=== PATIENT | female | born 1975 | race Caucasian/White ===

== ENCOUNTER 2019-02-24 12:19 | Emergency (ER) | payer OTHER ==
--- NOTE | 2019-02-24 12:56 | EDM.PDOC ---
ED HPI GENERAL MEDICAL PROBLEM - General Chief Complaint: ENT Problem Stated Complaint: POSSIBLE STREP THROAT Time Seen by Provider: 02/24/19 12:45 Source of Information: Reports: Patient, Old Records, RN History Limitations: Reports: No Limitations - History of Present Illness INITIAL COMMENTS - FREE TEXT/NARRATIVE: 43 yo female here with a sore throat since yesterday. Has not had a fever. Gets strep often. Last 4 mos. ago. Onset: Gradual Onset Date: 02/23/19 Duration: Hour(s): (1+), Constant Location: Reports: Neck (throat) Quality: Reports: Sharp (with swallowing) Severity: Moderate Improves with: Reports: Medication Worsens with: Reports: Other (swallowing) Context: Reports: Other (see HPI) Associated Symptoms: Reports: No Other Symptoms. Denies: Fever/Chills Treatments DECORATOR LIGHTING FIXTURES: Reports: Other (see below) (none) Throat Pain Score (Numeric/FACES): 6 - Related Data Allergies Allergy/AdvReac Type Severity Reaction Status Date / Time amoxicillin [From Augmentin] Allergy Rash Verified 02/09/18 06:59 clavulanic acid Allergy Rash Verified 02/09/18 06:59 [From Augmentin] Home Meds: Home Meds DULoxetine HCl [Cymbalta] 120 mg PO DAILY 01/16/17 [History] busPIRone [Buspar] 30 mg PO BID 01/16/17 [History] ARIPiprazole [Abilify] 10 mg PO DAILY 02/08/18 [History] Estradiol [Estrace] 1 mg PO DAILY 02/08/18 [History] buPROPion [buPROPion XL] 150 mg PO DAILY 02/08/18 [History] buPROPion [buPROPion XL] 300 mg PO BEDTIME 02/08/18 [History] Acetaminophen with Codeine [Tylenol with Codeine #3 Tablet] 2 each PO Q6HR PRN 02/09/18 [History] Carisoprodol [Soma] 250 mg PO QID PRN 02/09/18 [History] LORazepam 1 mg PO Q4HR PRN 02/09/18 [History] Past Medical History Gastrointestinal History: Reports: Other (See Below) Other Gastrointestinal History: blood in stool Genitourinary History: Reports: Renal Calculus [employer] History: Reports: Musculoskeletal History: Reports: Back Pain, Chronic, Other (See Below) Other Musculoskeletal History: R knee pain Psychiatric History: Reports: Anxiety, Bipolar, Depression, Mood Swings, Panic Attack Other Psychiatric History: Recieved ECT treatment Endocrine/Metabolic History: Reports: Obesity/BMI 30+ - Infectious Disease History Infectious Disease History: Reports: Chicken Pox - Past Surgical History GI Surgical History: Reports: Appendectomy, Hernia, Inguinal Female Surgical History: Reports: Section, Hysterectomy, Lithotripsy /ESWL Musculoskeletal Surgical History: Reports: Knee Replacement Social & Family History - Family History Family Medical History: Noncontributory - Tobacco Use Smoking Status *Q: Current Some Day Smoker Years of Tobacco use: 5 Packs/Tins Daily: 0.5 - Caffeine Use Caffeine Use: Reports: Coffee - Recreational Drug Use Recreational Drug Use: No ED ROS ENT - Review of Systems Review Of Systems: See Below Constitutional: Reports: No Symptoms HEENT: Reports: Throat Pain, Other (white exudate on tonsils) Respiratory: Reports: No Symptoms Cardiovascular: Reports: No Symptoms GI/Abdominal: Reports: No Symptoms Skin: Reports: No Symptoms Neurological: Reports: No Symptoms ED EXAM, ENT - Physical Exam Exam: See Below Exam Limited By: No Limitations General Appearance: Alert, WD/WN, No Apparent Distress Eye Exam: Bilateral Eye: Normal Inspection Ears: Normal External Exam, Normal Canal, Hearing Grossly Normal, Normal TMs Nose: Normal Inspection, No Blood Mouth/Throat: Normal Inspection, Normal Lips, Throat Pain, Tonsillar Exudates. No: Peritonsillar Mass, Throat Swelling, Uvular Deviation, Uvular Edema Head: Atraumatic, Normocephalic Neck: Normal Inspection Respiratory/Chest: No Respiratory Distress, Lungs Clear, Normal Breath Sounds, No Accessory Muscle Use Cardiovascular: Regular Rate, Rhythm, No Edema Extremities: Normal Inspection Neurological: Alert, Oriented, CN II-XII Intact, Normal Cognition, No Motor/ Sensory Deficits Skin: Warm, Dry, Intact, Normal Color, No Rash Course - Vital Signs Last Recorded V/S: Last Vital Signs Temp 37.0 C 02/24/19 12:28 Pulse 107 H 02/24/19 12:28 Resp 16 02/24/19 12:28 BP 145/87 H 02/24/19 12:28 Pulse Ox 96 02/24/19 12:28 Departure - Departure Time of Disposition: 13:07 Disposition: Home, Self-Care 01 Condition: Good Clinical Impression: Strep tonsillitis - Discharge Information *PRESCRIPTION DRUG MONITORING PROGRAM REVIEWED*: No *COPY OF PRESCRIPTION DRUG MONITORING REPORT IN PATIENT OMAYRA: No Instructions: Strep Throat, [id number] Referrals: Jodee Arrington PA [Primary Care Provider] - Forms: ED Department Discharge Additional Instructions: Take cephalexin as directed until gone. Acetaminophen and/or ibuprofen for pain relief. Hand washing to reduce the risk of spread. Recheck as needed. Sepsis Event Note - Evaluation Sepsis Screening Result: No Definite Risk - Focused Exam Vital Signs: Vital Signs Temp Pulse Resp BP Pulse Ox 02/24/19 12:28 37.0 C 107 H 16 145/87 H 96 Date Exam was Performed: 02/24/19 Time Exam was Performed: 13:04
== END 2019-02-24 13:15 | disposition home or self-care (01) ==
LOC: JP.ED 12:19
DX: J03.00 Acute streptococcal tonsillitis, unspecified (principal); F17.210 Nicotine dependence, cigarettes, uncomplicated; Z79.899 Other long term (current) drug therapy; F31.9 Bipolar disorder, unspecified; F41.9 Anxiety disorder, unspecified; E66.9 Obesity, unspecified; Z68.30 Body mass index [BMI] 30.0-30.9, adult; Z88.1 Allergy status to other antibiotic agents
CPT/HCPCS: 87880-QW; 99283

== ENCOUNTER 2019-10-16 08:28 | Day surgery (SDC) | payer OTHER ==
[~2019-10-16 08:28] MED LIST: Bupivacaine 0.5% 30 ML SDV ONE
[2019-10-16] MEDS ORDERED: Nozin Nasal Sanitizer NASBOTH ONE (08:45)
[2019-10-16] MEDS ORDERED: Propofol 200 MG/20 ML SDV ONE ×4 (09:02→13:41)
[2019-10-16] MEDS ORDERED: Midazolam 1 MG/ML 2 ML SDV ONE ×3 (09:02→13:30)
[2019-10-16] MEDS ORDERED: fentaNYL 100 MCG/2 ML SDV ONE (09:02)
[2019-10-16] MEDS ORDERED: Lactated Ringers 1,000 ML IV SCH (09:30)
[2019-10-16] MEDS ORDERED: Bupivacaine 0.5% 30 ML SDV ONE (09:51)
[2019-10-16] MEDS ORDERED: ceFAZolin 2 GM in Premix Bag 1 BAG IV ONE (12:15)
[2019-10-16] MEDS ORDERED: Lactated Ringers 1,000 ML ONE (13:44)
--- NOTE | 2019-10-23 18:29 | OR ---
DATE OF PROCEDURE: 10/16/2019 SURGEON: Aubrey Barth MD PREOPERATIVE DIAGNOSIS: Impingement, left shoulder, possible rotator cuff tear. POSTOPERATIVE DIAGNOSIS: Impingement, right shoulder, partial-thickness rotator cuff tear. PROCEDURE: Arthroscopy, right shoulder, with subacromial decompression and acromioplasty. ANESTHESIA: Interscalene block and sedation. INDICATIONS: Pavithra is a 43-year-old female with a history of persistent shoulder pain and difficulty with overhead activities. She has failed conservative treatment. Examination imaging are consistent with impingement and rotator cuff tendinopathy with possible partial- thickness or small full-thickness tear. She is now brought to the operating room for arthroscopic evaluation, decompression, acromioplasty, and repair of the cuff as needed. Risks, benefits, potential complications of the procedure were discussed. PROCEDURE IN DETAIL: After adequate anesthesia was obtained, patient was placed in lateral decubitus position and secured with a vanegas bag positioner. The left shoulder and arm were then prepped and draped in a sterile fashion and 10 pounds traction was placed through the shoulder traction unit. A standard posterior portal was established. Glenohumeral joint was inspected and this revealed no significant degenerative changes of the glenoid or humeral head. A very minimal fraying of the labrum was present. The biceps tendon was intact. Subscapularis was intact. The undersurface of the rotator cuff showed a small partial thickness tear on the undersurface, and this was marked using a spinal needle with a PDS suture. The scope was withdrawn and placed in the subacromial space. Moderate inflammation noted within the bursa. Significant impingement was noted against the coracoacromial ligament with very limited space. Ligament was debrided off the undersurface of the acromion with the ablation wand. This showed a fairly severe anterolateral hook on the acromion. A eliana was used to perform an acromioplasty removing approximately 6 mm from the anterolateral edge and bevelling this medially and posteriorly. The bursal surface of the rotator cuff was inspected and found to be intact. The area of the partial-thickness tear was palpated with a probe and not found to be significantly weakened and a decision was made not to proceed with repair of the cuff. The scope was evaluated from both the posterior and lateral portals. Level of the acromioplasty was adequate. The scope was then withdrawn. Port sites were closed in a standard fashion, dressed with Steri-Strips and a sterile dressing. The patient tolerated procedure well, there were no complications, taken from the operating room in a stable condition. Aubrey Barth MD /[id number]
== END 2019-10-16 15:45 | disposition home or self-care (01) ==
LOC: JP.SDS 08:28
PROVIDERS: ATTEND Specialist
DX: M25.812 Other specified joint disorders, left shoulder (principal); M75.111 Incomplete rotator cuff tear or rupture of right shoulder, not specified as traumatic; M17.11 Unilateral primary osteoarthritis, right knee; K21.9 Gastro-esophageal reflux disease without esophagitis; F17.210 Nicotine dependence, cigarettes, uncomplicated; E66.9 Obesity, unspecified; F41.9 Anxiety disorder, unspecified; F32.9 Major depressive disorder, single episode, unspecified; Z68.41 Body mass index [BMI] 40.0-44.9, adult; Z88.1 Allergy status to other antibiotic agents; Z79.899 Other long term (current) drug therapy
CPT/HCPCS: 29826; 29827; 36415; 80053; 85027; A9270; C1713; J0690; J2250; J2704; J3010; J3490; J7120

== ENCOUNTER 2020-09-28 07:46 | Inpatient (IN) | payer OTHER ==
[~2020-09-28 07:46] MED LIST changes: -Bupivacaine 0.5% 30 ML SDV ONE; +Povidone-Iodine 10% Soln 118.25 ML Bottle ONE
[2020-09-28] MEDS ORDERED: Lactated Ringers 1,000 ML IV SCH (08:15)
[2020-09-28] MEDS ORDERED: Nozin Nasal Sanitizer NASBOTH ONE (08:15)
[2020-09-28] MEDS ORDERED: ceFAZolin 2 GM in Premix Bag 1 BAG IV ONE (08:45)
[2020-09-28] MEDS ORDERED: Propofol 200 MG/20 ML SDV ONE ×2 (08:49→11:52)
[2020-09-28] MEDS ORDERED: fentaNYL 100 MCG/2 ML SDV ONE (08:49)
[2020-09-28] MEDS ORDERED: Midazolam 1 MG/ML 2 ML SDV ONE ×2 (08:49→11:37)
[2020-09-28] MEDS ORDERED: Tranexamic Acid 1,000 MG in Sodium Chloride 0.9% 50 ML IV ONE (09:15)
[2020-09-28] MEDS ORDERED: Tranexamic Acid 1,000 MG in Sodium Chloride 0.9% 50 ML IV PRN (10:15)
[2020-09-28] MEDS ORDERED: Ondansetron 4 MG/2 ML SDV IVPUSH PRN (13:06)
[2020-09-28] MEDS ORDERED: Acetaminophen 325 MG Tab PO PRN (13:06)
[2020-09-28] MEDS ORDERED: LORazepam 1 MG Tab PO PRN (13:11)
--- NOTE | 2020-09-28 13:37 | CR ---
Knee 1V or 2V Lt CLINICAL HISTORY: Status post arthroplasty FINDINGS: Patient is status post total left knee arthroplasty. Components appear well seated. There is intra-articular air. Impression: Status post recent total knee arthroplasty
[2020-09-28] MEDS: Acetaminophen/oxyCODONE 325-5 MG Tab PO PRN ×3 (13:55→22:23)
[2020-09-28] MEDS: Ketorolac 30 MG/ML SDV IVPUSH SCH ×2 (14:38→22:22)
[2020-09-28] MEDS: Morphine 2 MG/ML SYRINGE IVPUSH PRN ×4 (14:50→19:58)
[2020-09-28] MEDS: Sodium Chloride 0.9% 1,000 ML IV SCH (17:28)
[2020-09-28] MEDS: ceFAZolin 1 GM in Premix Bag 1 BAG IV SCH (17:51)
[2020-09-28] MEDS ORDERED: LITHIUM CARBONATE 450 MG PO SCH (21:00)
[2020-09-28] MEDS: Nozin Nasal Sanitizer NASBOTH SCH (22:18)
[2020-09-28] MEDS: busPIRone 10 MG Tab PO SCH (22:19)
[2020-09-28] MEDS: Docusate Sodium 100 MG Cap PO SCH (22:20)
[2020-09-28] MEDS: Lithium Carbonate 300 MG Tab.ER PO SCH (22:21)
[2020-09-28] MEDS: Gemfibrozil 600 MG Tab PO SCH (22:22)
[2020-09-28] MEDS: buPROPion 150 MG Tab.ER PO SCH (22:22)
[2020-09-29] MEDS: Sodium Chloride 0.9% 1,000 ML IV SCH (02:05)
[2020-09-29] MEDS: ceFAZolin 1 GM in Premix Bag 1 BAG IV SCH ×2 (02:06→09:45)
[2020-09-29] MEDS: Acetaminophen/oxyCODONE 325-5 MG Tab PO PRN ×5 (02:12→19:52)
[2020-09-29] MEDS: Ketorolac 30 MG/ML SDV IVPUSH SCH ×2 (06:13→13:54)
--- NOTE | 2020-09-29 08:12 | PCM.SURGPN ---
- General Info Date of Service: 09/29/20 Date of Surgery/Procedure: 09/28/20 POD#: 1 Post-Op Diagnosis: left knee osteoarthritis Admission Diagnosis/Problem: Knee joint operation Functional Status: Reports: Tolerating Diet, Ambulating (with FWW, SBA ) - Review of Systems General: Reports: Appetite (endorsed good appetite ). Denies: Fever, Weakness, Fatigue, Malaise, Chills, Night Sweats HEENT: Denies: Visual Changes Pulmonary: Denies: Shortness of Breath Cardiovascular: Denies: Chest Pain, Palpitations Musculoskeletal: Reports: Leg Pain (left ), Joint Pain (left knee ), Joint Swelling (left knee ) Neurological: Reports: No Symptoms Psychiatric: Reports: No Symptoms - Patient Data Vitals - Most Recent: Last Vital Signs Temp 95.9 F L 09/29/20 07:17 Pulse 87 09/29/20 07:17 Resp 18 09/29/20 07:17 BP 122/71 09/29/20 07:17 Pulse Ox 94 L 09/29/20 07:17 Weight - Most Recent: 253 lb 3.99 oz I&O - Last 24 Hours: Intake & Output 09/28/20 09/29/20 09/29/20 22:59 06:59 14:59 Intake Total 1749 1150 Output Total 900 2425 Balance 849 -1275 Lab Results Last 24 Hrs: Laboratory Results - last 24 hr 09/29/20 Range/Units 04:10 WBC 11.2 H (4.5-11.0) K/uL RBC 3.96 (3.30-5.50) M/uL Hgb 11.7 L (12.0-15.0) g/dL Hct 34.6 L (36.0-48.0) % MCV 87 (80-98) fL MCH 30 (27-31) pg MCHC 34 (32-36) % Plt Count 242 (150-400) K/uL Med Orders - Current: Current Medications Acetaminophen (Acetaminophen 325 Mg Tab) 650 mg PO Q4H PRN PRN Reason: Pain/Fever Amphetamine/Dextroamphetamine (Amphetamine/Dextroamphetamine Salts 10 Mg Tab) 20 mg PO DAILY [facility] Aripiprazole (Aripiprazole 10 Mg Tab) 10 mg PO DAILY [facility] Bandage/Support Products (Nozin Nasal Beater Room Helper) 1 applic NASBOTH BID BERENICE Stop: 10/04/20 21:01 Last Admin: 09/28/20 22:18 Dose: 1 applic Documented by: Bupropion HCl (Bupropion 150 Mg Tab.Er) 150 mg PO DAILY [facility] Bupropion HCl (Bupropion 150 Mg Tab.Er) 300 mg PO BEDTIME [facility] Last Admin: 09/28/20 22:22 Dose: 300 mg Documented by: Buspirone HCl (Buspirone 10 Mg Tab) 30 mg PO BID [facility] Last Admin: 09/28/20 22:19 Dose: 30 mg Documented by: Docusate Sodium (Docusate Sodium 100 Mg Cap) 100 mg PO BID [facility] Last Admin: 09/28/20 22:20 Dose: 100 mg Documented by: Duloxetine HCl (Duloxetine 30 Mg Cap) 120 mg PO DAILY [facility] Enoxaparin Sodium (Enoxaparin 30 Mg/0.3 Ml Syringe) 30 mg SUBCUT DAILY [facility] Estradiol (Estradiol 0.5 Mg Tab) 1 mg PO DAILY [facility] Eszopiclone (Eszopiclone 1 Mg Tab) 0.5 - 2 mg PO BEDTIME PRN PRN Reason: Sleep Last Admin: 09/28/20 22:27 Dose: 1 mg Documented by: Gemfibrozil (Gemfibrozil 600 Mg Tab) 600 mg PO BID [facility] Last Admin: 09/28/20 22:22 Dose: 600 mg Documented by: Sodium Chloride (Normal Saline) 1,000 mls @ 125 mls/hr IV ASDIRECTED [facility] Last Admin: 09/29/20 02:05 Dose: 125 mls/hr Documented by: Cefazolin Sodium/Dextrose 1 gm (/ Premix) 50 mls @ 100 mls/hr IV Q8H [facility] Stop: 09/29/20 10:29 Last Admin: 09/29/20 02:06 Dose: 100 mls/hr Documented by: Ketorolac Tromethamine (Ketorolac 30 Mg/Ml Sdv) 30 mg IVPUSH Q8H [facility] Stop: 09/30/20 06:01 Last Admin: 09/29/20 06:13 Dose: 30 mg Documented by: [place] Carbonate ([place] Carbonate 150 Mg Cap) 150 mg PO BEDTIME [facility] Last Admin: 09/28/20 22:20 Dose: 150 mg Documented by: [place] Carbonate ([place] Carbonate 300 Mg Tab.Er) 300 mg PO BEDTIME [facility] Last Admin: 09/28/20 22:21 Dose: 300 mg Documented by: Lorazepam (Lorazepam 1 Mg Tab) 1 mg PO Q4H PRN PRN Reason: Anxiety Morphine Sulfate (Morphine 2 Mg/Ml Syringe) 1 mg IVPUSH Q1H PRN PRN Reason: Breakthrough Pain Last Admin: 09/28/20 19:58 Dose: 1 mg Documented by: Ondansetron HCl (Ondansetron 4 Mg/2 Ml Sdv) 4 mg IVPUSH Q4H PRN PRN Reason: Nausea/Vomiting Oxycodone/Acetaminophen (Acetaminophen/Oxycodone 325-5 Mg Tab) 1 - 2 tab PO Q4H PRN PRN Reason: Pain Last Admin: 09/29/20 06:19 Dose: 2 tab Documented by: Discontinued Medications Bandage/Support Products (Nozin Nasal Beater Room Helper) 1 applic NASBOTH ONETIME ONE Stop: 09/28/20 08:16 Last Admin: 09/28/20 08:27 Dose: 3 swab Documented by: Fentanyl (Fentanyl 100 Mcg/2 Ml Sdv) Confirm Administered Dose 100 mcg .ROUTE .STK-MED ONE Stop: 09/28/20 08:50 Lactated Ringer's (Ringers, Lactated) 1,000 mls @ 75 mls/hr IV ASDIRECTED [facility] Last Admin: 09/28/20 08:46 Dose: 75 mls/hr Documented by: Cefazolin Sodium/Dextrose 2 gm (/ Premix) 50 mls @ 100 mls/hr IV ONETIME ONE Stop: 09/28/20 09:14 Last Admin: 09/28/20 11:01 Dose: 100 mls/hr Documented by: Tranexamic Acid 1,000 mg/ (Sodium Chloride) 60 mls @ 240 mls/hr IV ONETIME ONE Stop: 09/28/20 09:29 Last Admin: 09/28/20 11:03 Dose: 240 mls/hr Documented by: Tranexamic Acid 1,000 mg/ (Sodium Chloride) 60 mls @ 240 mls/hr IV ONETIME PRN PRN Reason: 2ND DOSE IF REQUESTED BY MD Stop: 09/28/20 12:15 Midazolam HCl (Midazolam 1 Mg/Ml 2 Ml Sdv) Confirm Administered Dose 2 mg .ROUTE .STK-MED ONE Stop: 09/28/20 08:50 Midazolam HCl (Midazolam 1 Mg/Ml 2 Ml Sdv) Confirm Administered Dose 2 mg .ROUTE .STK-MED ONE Stop: 09/28/20 11:38 Non-Formulary Medication (Atorvastatin Calcium [Lipitor]) 40 mg PO DAILY [facility] Povidone Iodine (Povidone-Iodine 10% Soln 118.25 Ml Bottle) Confirm Administered Dose 1 ml .ROUTE .STK-MED ONE Stop: 09/28/20 06:55 Last Admin: 09/28/20 12:02 Dose: 15 ml Documented by: Propofol (Propofol 200 Mg/20 Ml Sdv) Confirm Administered Dose 200 mg .ROUTE .STK-MED ONE Stop: 09/28/20 08:50 Propofol (Propofol 200 Mg/20 Ml Sdv) Confirm Administered Dose 200 mg .ROUTE .STK-MED ONE Stop: 09/28/20 11:53 - Exam Wound/Incisions: Dressing Dry and Intact, No Drainage Quality Assessment: Urine Catheter, DVT Prophylaxis General: Alert, Oriented, Cooperative, No Acute Distress Extremities: Normal Capillary Refill, Pedal Edema, Joint Swelling (left knee ), Leg Pain (left ), Limited Range of Motion (due to postoperative swelling and pain ). No: Lydia's Sign Skin: Warm, Dry, Intact Neurological: No New Focal Deficit Psy/Mental Status: Alert, Normal Affect, Normal Mood Sepsis Event Note - Evaluation Sepsis Screening Result: No Definite Risk - Focused Exam Vital Signs: Vital Signs Temp Pulse Resp BP BP Pulse Ox 09/29/20 07:17 95.9 F L 87 18 122/71 94 L 09/29/20 03:00 97.7 F 72 18 123/69 97 09/28/20 22:31 96.8 F L 63 16 132/72 97 - Problem List & Annotations (1) Postoperative anemia due to acute blood loss SNOMED Code(s): 85110010667850446 Code(s): D62 - ACUTE POSTHEMORRHAGIC ANEMIA Status: Acute Current Visit: Yes (2) Status post total left knee replacement SNOMED Code(s): 5892826913347, 3621304110378 Code(s): Z96.652 - PRESENCE OF LEFT ARTIFICIAL KNEE JOINT Status: Acute Current Visit: Yes - Problem List Review Problem List Initiated/Reviewed/Updated: Yes - My Orders Last 24 Hours: Active Orders 24 hr Category Date Time Status Patient Status [ADT] Routine ADT 09/28/20 13:06 Active Ambulate [RC] QID Care 09/28/20 13:06 Active Antiembolic Devices [RC] .Routine Care 09/28/20 13:06 Active Head of Bed Elevation [RC] ASDIRECTED Care 09/28/20 13:06 Active Intake and Output [RC] QSHIFT Care 09/28/20 13:06 Active May Shower [RC] ASDIRECTED Care 09/28/20 13:06 Active Neurovascular Check [RC] Q4H Care 09/28/20 13:06 Active Notify Provider Vital Signs [RC] ASDIRECTED Care 09/28/20 13:06 Active Oxygen Therapy [RC] PRN Care 09/28/20 13:06 Active Pneumonia Education [RC] UPON Care 09/28/20 13:06 Active RT Incentive Spirometry [RC] Q1HWA Care 09/28/20 13:06 Active Up to Chair [RC] QID Care 09/28/20 13:06 Active Urinary Catheter Removal [RC] PER UNIT ROUTINE Care 09/29/20 07:59 Ordered VTE/DVT Education [RC] Click to Edit Care 09/28/20 13:06 Active Vital Signs [RC] Q4H Care 09/28/20 13:06 Active Wound Care [RC] Q12H Care 09/28/20 13:06 Active Consult to Case Management/Airborne Sensor Specialist [CONS] Cons 09/28/20 13:06 Active Routine OT Evaluation and Treatment [CONS] Routine Cons 09/28/20 13:06 Active PT Evaluation and Treatment [CONS] Routine Cons 09/28/20 13:06 Active PT Evaluation and Treatment [CONS] Routine Cons 09/28/20 13:06 Active Regular Diet [DIET] Diet 09/28/20 Lunch Active ARIPiprazole [Abilify] Med 09/29/20 09:00 Active 10 mg PO DAILY Acetaminophen [TylenoL] Med 09/28/20 13:06 Active 650 mg PO Q4H PRN Acetaminophen/oxyCODONE [Percocet 325-5 MG] Med 09/28/20 13:06 Active 1 - 2 tab PO Q4H PRN Amphetamine/Dextroamphetamine [Adderall] Med 09/29/20 09:00 Active 20 mg PO DAILY DULoxetine [Cymbalta] Med 09/29/20 09:00 Active 120 mg PO DAILY Docusate Sodium [Colace] Med 09/28/20 21:00 Active 100 mg PO BID Enoxaparin [Lovenox] Med 09/29/20 09:00 Active 30 mg SUBCUT DAILY Eszopiclone [Lunesta] Med 09/28/20 13:28 Active 0.5 - 2 mg PO BEDTIME PRN Ketorolac [Toradol] Med 09/28/20 14:00 Active 30 mg IVPUSH Q8H LORazepam [Ativan] Med 09/28/20 13:11 Active 1 mg PO Q4H PRN [place] Carbonate Med 09/28/20 21:00 Active 150 mg PO BEDTIME [place] Carbonate [Lithobid] Med 09/28/20 21:00 Active 300 mg PO BEDTIME Morphine Med 09/28/20 13:06 Active 1 mg IVPUSH Q1H PRN Nozin [ Nasal Beater Room Helper] Med 09/28/20 21:00 Active 1 applic NASBOTH BID Ondansetron [Zofran] Med 09/28/20 13:06 Active 4 mg IVPUSH Q4H PRN Sodium Chloride 0.9% [Normal Saline] 1,000 ml Med 09/28/20 13:15 Active IV ASDIRECTED buPROPion [Wellbutrin XL] Med 09/29/20 09:00 Active 150 mg PO DAILY buPROPion [Wellbutrin XL] Med 09/28/20 21:00 Active 300 mg PO BEDTIME busPIRone [Buspar] Med 09/28/20 21:00 Active 30 mg PO BID ceFAZolin [Ancef 1 GM/50 ML] 1 gm Med 09/28/20 18:00 Active Premix Bag 1 bag IV Q8H estradioL Med 09/29/20 09:00 Active 1 mg PO DAILY gemfibroziL [Lopid] Med 09/28/20 21:00 Active 600 mg PO BID Antiembolic Hose [OM.PC] Routine Oth 09/28/20 13:06 Ordered Convert IV to Saline Lock [OM.PC] Routine Oth 09/29/20 07:59 Ordered DVT/VTE Prophylaxis Reflex [OM.PC] Routine Oth 09/28/20 13:06 Ordered Ice Therapy [OM.PC] Per Unit Routine Oth 09/28/20 13:06 Ordered Medication Continuation Instructions [OM.PC] Per Unit Oth 09/28/20 13:06 Ordered Routine Oral Care [OM.PC] Routine Oth 09/28/20 13:06 Ordered Sequential Compression Device [OM.PC] Routine Oth 09/28/20 13:06 Ordered BRANDON Hose [Antiembolic Hose] [OM.PC] Routine Oth 09/28/20 08:15 Ordered Weight bearing status [OM.PC] Routine Oth 09/28/20 16:21 Ordered Resuscitation Status Routine Resus Stat 09/28/20 13:06 Ordered Medication Orders Acetaminophen (Acetaminophen 325 Mg Tab) 650 mg PO Q4H PRN PRN Reason: Pain/Fever Amphetamine/Dextroamphetamine (Amphetamine/Dextroamphetamine Salts 10 Mg Tab) 20 mg PO DAILY [facility] Aripiprazole (Aripiprazole 10 Mg Tab) 10 mg PO DAILY [facility] Bandage/Support Products (Nozin Nasal Beater Room Helper) 1 applic NASBOTH BID [facility] Stop: 10/04/20 21:01 Last Admin: 09/28/20 22:18 Dose: 1 applic Documented by: CELIA Bupropion HCl (Bupropion 150 Mg Tab.Er) 150 mg PO DAILY [facility] Bupropion HCl (Bupropion 150 Mg Tab.Er) 300 mg PO BEDTIME [facility] Last Admin: 09/28/20 22:22 Dose: 300 mg Documented by: CELIA Buspirone HCl (Buspirone 10 Mg Tab) 30 mg PO BID [facility] Last Admin: 09/28/20 22:19 Dose: 30 mg Documented by: CELIA Docusate Sodium (Docusate Sodium 100 Mg Cap) 100 mg PO BID [facility] Last Admin: 09/28/20 22:20 Dose: 100 mg Documented by: CELIA Duloxetine HCl (Duloxetine 30 Mg Cap) 120 mg PO DAILY [facility] Enoxaparin Sodium (Enoxaparin 30 Mg/0.3 Ml Syringe) 30 mg SUBCUT DAILY [facility] Estradiol (Estradiol 0.5 Mg Tab) 1 mg PO DAILY [facility] Eszopiclone (Eszopiclone 1 Mg Tab) 0.5 - 2 mg PO BEDTIME PRN PRN Reason: Sleep Last Admin: 09/28/20 22:27 Dose: 1 mg Documented by: CELIA Gemfibrozil (Gemfibrozil 600 Mg Tab) 600 mg PO BID [facility] Last Admin: 09/28/20 22:22 Dose: 600 mg Documented by: CELIA Sodium Chloride (Normal Saline) 1,000 mls @ 125 mls/hr IV ASDIRECTED [facility] Last Admin: 09/29/20 02:05 Dose: 125 mls/hr Documented by: Infusion: 09/29/20 01:28 Dose: 125 mls/hr Documented by: Admin: 09/28/20 17:28 Dose: 125 mls/hr Documented by: ZELDA Cefazolin Sodium/Dextrose 1 gm (/ Premix) 50 mls @ 100 mls/hr IV Q8H [facility] Stop: 09/29/20 10:29 Last Admin: 09/29/20 02:06 Dose: 100 mls/hr Documented by: Infusion: 09/28/20 18:21 Dose: 100 mls/hr Documented by: Admin: 09/28/20 17:51 Dose: 100 mls/hr Documented by: ZELDA Ketorolac Tromethamine (Ketorolac 30 Mg/Ml Sdv) 30 mg IVPUSH Q8H [facility] Stop: 09/30/20 06:01 Last Admin: 09/29/20 06:13 Dose: 30 mg Documented by: Admin: 09/28/20 22:22 Dose: 30 mg Documented by: Admin: 09/28/20 14:38 Dose: 30 mg Documented by: ZELDA [place] Carbonate ([place] Carbonate 150 Mg Cap) 150 mg PO BEDTIME [facility] Last Admin: 09/28/20 22:20 Dose: 150 mg Documented by: CELIA [place] Carbonate ([place] Carbonate 300 Mg Tab.Er) 300 mg PO BEDTIME [facility] Last Admin: 09/28/20 22:21 Dose: 300 mg Documented by: CELIA Lorazepam (Lorazepam 1 Mg Tab) 1 mg PO Q4H PRN PRN Reason: Anxiety Morphine Sulfate (Morphine 2 Mg/Ml Syringe) 1 mg IVPUSH Q1H PRN PRN Reason: Breakthrough Pain Last Admin: 09/28/20 19:58 Dose: 1 mg Documented by: Admin: 09/28/20 16:57 Dose: 1 mg Documented by: Admin: 08/02/21 15:50 Dose: 1 mg Documented by: Admin: 09/28/20 14:50 Dose: 1 mg Documented by: ZELDA Ondansetron HCl (Ondansetron 4 Mg/2 Ml Sdv) 4 mg IVPUSH Q4H PRN PRN Reason: Nausea/Vomiting Oxycodone/Acetaminophen (Acetaminophen/Oxycodone 325-5 Mg Tab) 1 - 2 tab PO Q4H PRN PRN Reason: Pain Last Admin: 09/29/20 06:19 Dose: 2 tab Documented by: Admin: 09/29/20 02:12 Dose: 2 tab Documented by: Admin: 09/28/20 22:23 Dose: 2 tab Documented by: Admin: 09/28/20 17:54 Dose: 2 tab Documented by: Admin: 09/28/20 13:55 Dose: 1 tab Documented by: ZELDA - Assessment Assessment (Free Text/Narrative):: Patient is a pleasant 44-year-old female, status post left total knee arthroplasty, postop day #1. No acute events overnight. Patient remains hemodynamically stable. Postop day #1 hemoglobin declined to 11.7. Patient is asymptomatic with this; denied lightheadedness, dizziness, vision changes. Pain has been fairly well controlled overnight; increased pain when spinal block wore off, but reports pain under much better control this morning at rest. Tolerating regular diet well. Patient denied nausea nor emesis. Also denied subjective fevers, chills, dyspnea, chest pain, nor palpitations. Was able to transfer from bed to chair yesterday evening. Walked ~25 ft with FWW and SBA this morning with nursing staff. Endorsed pain in left leg with weightbearing, relieved well with rest and Percocet. Patient continues to require inpatient status at this time for postoperative anemia monitoring and for further physical therapy services to progress ambulation abilities. Exam: Left leg fransisco wrap dry and intact. Modest postoperative swelling present on the left knee extending into the left calf, pedal edema present. Unable to accurately assess temperature of knee, as a cool pack is placed on the knee. Left calf is soft and supple. Negative Homans' sign. Tibialis posterior, 2+. Dorsi flexion: 4+/5. Plantar flexion: 4+/5. Limited knee ROM from post-operative swelling and pain. Plan: * Patient to participate in physical and occupational therapy services daily while in the hospital to progress ambulation abilities and functional mobility of left lower extremity. * Postoperative anemia stable at this time; continue to monitor vitals every 4 hours and for any symptoms of lightheadedness, dizziness, or vision changes. Will recheck CBC if patient becomes symptomatic. * Pierre catheter to be discontinued this morning. * IV saline locked this morning. * Continue with current pain regimen. * Continue with 30 mg Lovenox daily for chemical DVT/VTE prophylaxis. Bilateral SCDs for mechanical prophylaxis. * Left knee dressing change to be performed on postop day #2 by orthopedic provider. * Anticipate discharge to home with outpatient physical therapy when patient is medically stable and ambulation abilities improve.
[2020-09-29] MEDS ORDERED: Non-Formulary Medication 1 Each (Atorvastatin Calcium [Lipitor] 40 MG Tablet) PO SCH (09:00)
[2020-09-29] MEDS: Estradiol 0.5 MG Tab PO SCH (09:44)
[2020-09-29] MEDS: Amphetamine/Dextroamphetamine Salts 10 MG Tab PO SCH (09:44)
[2020-09-29] MEDS: DULoxetine 30 MG Cap PO SCH (09:44)
[2020-09-29] MEDS: ARIPiprazole 10 MG Tab PO SCH (09:44)
[2020-09-29] MEDS: Docusate Sodium 100 MG Cap PO SCH ×2 (09:44→22:04)
[2020-09-29] MEDS: busPIRone 10 MG Tab PO SCH ×2 (09:44→22:04)
[2020-09-29] MEDS: Enoxaparin 30 MG/0.3 ML Syringe SUBCUT SCH (09:45)
[2020-09-29] MEDS: Gemfibrozil 600 MG Tab PO SCH ×2 (09:45→22:04)
[2020-09-29] MEDS: buPROPion 150 MG Tab.ER PO SCH ×2 (09:45→22:06)
[2020-09-29] MEDS: Nozin Nasal Sanitizer NASBOTH SCH ×2 (10:22→22:03)
[2020-09-29] MEDS: Lithium Carbonate 300 MG Tab.ER PO SCH (22:07)
[2020-09-30] MEDS: Acetaminophen/oxyCODONE 325-5 MG Tab PO PRN ×3 (00:46→09:08)
--- NOTE | 2020-09-30 07:46 | PCM.DCSUM1 ---
Discharge Summary - Hospital Course Brief History: patient is a tanya 44 y/o female, history of chronic left knee pain with symptoms refractory to conservative management. Elected to undergo TKA. Left TKA performed on 09/28/20 with no surgical or postoperative complications. Diagnosis: Stroke: No Modified Winkler Scale: No Symptoms at All Modified Filipe Scale Score: 0 - Discharge Data Discharge Date: 09/30/20 Discharge Disposition: Home, Self-Care 01 Condition: Good - Referral to Home Health Date of Face to Face Encounter: 09/30/20 Reason for Homebound Status: motivated to go home, able to ambulate with FWW, completes ADLs with minimal assistance Primary Care Physician: RICARDA Swenson - Discharge Diagnosis/Problem(s) (1) Postoperative anemia due to acute blood loss SNOMED Code(s): 48111212690878418 ICD Code: D62 - ACUTE POSTHEMORRHAGIC ANEMIA Status: Acute Current Visit: Yes (2) Status post total left knee replacement SNOMED Code(s): 7660912623836, [id number] ICD Code: Z96.652 - PRESENCE OF LEFT ARTIFICIAL KNEE JOINT Status: Acute Current Visit: Yes - Patient Summary/Data Operative Procedure(s) Performed: left total knee arthroplasty Consults: Consultations 09/28/20 13:06 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 OT Reason for Consult: ADL's Special Instructions: s/p L TKA This query below is only for informational purposes and is not editable. PT Evaluation and Treatment [CONS] Routine Please Evaluate and Treat. PT Reason for Consult: Post op Ortho Surgery Special Instructions: s/p LTKA, WBAT This query below is only for informational purposes and is not editable. PT Evaluation and Treatment [CONS] Routine Please Evaluate and Treat. PT Reason for Consult: Post op Ortho Surgery Knee Pending Discharge: Yes, 1- 2 days Special Instructions: s/p LTKA Schedule first outpatient PT appointment in 3-5 day post discharge. This query below is only for informational purposes and is not editable. Hospital Course: Tanya 44 y/o female, status post left total knee arthroplasty, POD#2. Patient tolerated surgery well with no complications. No acute events in the post- operative period. Patient remained hemodynamically stable throughout her stay. POD#1 HgB declined to 11.7. Was stable and asymptomatic with this; denied lightheadedness, dizziness, nor vision changes. Also denied subjective fevers, chills, dyspnea, nor chest pain. Patient had some difficulty with the transition from IV to oral pain medications, but eventually obtained adequate pain control with oral Percocet. Tolerated regular diet well; denied nausea or emesis. Participated in PT and OT throughout hospitalization; ambulated up to 100 ft with FWW x 4. Did complete stairs and demonstrated competency and safety in doing so prior to discharge. Flexion of left knee to 85. Demonstrated ability to complete ADLs with minimal assistance. Patient did receive 30 mg Lovenox qd for chemical DVT/VTE prophylaxis and wore bilateral lower extremity SCDs for mechanical prophylaxis. Pierre discontinued POD#1. IV was saline locked POD#1. Dressing change performed by orthopedic provider on evening of POD#1. Patient did shower on POD#2 and new dressing applied to left knee prior to discharge. Exam: Left knee incision approximated and intact; steristrips above with dried drainage. Mild ecchymosis around knee and thigh. Moderate post operative swelling present on left knee extending into calf and foot. Left calf is soft and supple. Negative jhony's sign. Tibialis posterior, 2+. Sensation to LLE intact. Dorsiflexion: 4+/5. Plantar flexion: 5/5. - Patient Instructions Diet: Usual Diet as Tolerated Activity: Apply Ice, Full Weight Bearing Driving: Do Not Drive Showering/Bathing: Shower in AM Wound/Incision Care: Keep Operative Site/Wound Site Clean and Dry, Change Dressing Daily Notify Provider of: Fever, Increased Pain, Swelling and Redness, Drainage Other/Special Instructions: -Pain prescription sent to your pharmacy, 5mg-325 mg Percocet, 1-2 tabs q6 hrs prn for pain #40. This is a 1 week supply, no early re-fills. You may use NSAIDs as needed for breakthrough pain. -You are encouraged to continue with stool softener while on opioid pain medication. - Educated on DVT/VTE warning signs; take 1 aspirin BID to prevent blood clots. If you develop increased calf pain, lower extremity discoloration, change in temperature, or shortness of breath, please seek medical evaluation. -Watch your incision daily; if increased surrounding redness, purulent drainage, or change in temperature, please contact the clinic. -Outpatient PT has been scheduled. -Follow up with orthopedics in 2 weeks; call if questions or concerns arise prior to your scheduled apt. - Discharge Plan *PRESCRIPTION DRUG MONITORING PROGRAM REVIEWED*: Yes *COPY OF PRESCRIPTION DRUG MONITORING REPORT IN PATIENT OMAYRA: Not Applicable Prescriptions/Med Rec: Aspirin 325 mg PO BID #60 tab Acetaminophen/oxyCODONE [Percocet 325-5 MG] 1 - 2 each PO Q6HR PRN #40 tab PRN Reason: Pain Home Medications: Home Meds DULoxetine HCl [Cymbalta] 120 mg PO DAILY 01/16/17 [History] busPIRone [Buspar] 30 mg PO BID 01/16/17 [History] ARIPiprazole [Abilify] 10 mg PO DAILY 02/08/18 [History] buPROPion [buPROPion XL] 150 mg PO DAILY 02/08/18 [History] buPROPion [buPROPion XL] 300 mg PO BEDTIME 02/08/18 [History] estradioL [Estrace] 1 mg PO DAILY 02/08/18 [History] LORazepam 1 mg PO Q4HR PRN 02/09/18 [History] Eszopiclone 0.5 - 2 mg PO BEDTIME PRN 10/16/19 [History] [place] Carbonate [Eskalith CR] 450 mg PO BEDTIME 10/16/19 [History] Cholecalciferol (Vitamin D3) [Vitamin D] 1,000 unit PO DAILY 04/20/20 [History] atorvaSTATin Calcium [Lipitor] 40 mg PO DAILY 04/20/20 [History] Dextroamphetamine/Amphetamine [Adderall 20 mg Tablet] 20 mg PO DAILY 08/13/20 [History] gemfibroziL [Gemfibrozil] 600 mg PO BID 09/22/20 [History] Acetaminophen/oxyCODONE [Percocet 325-5 MG] 1 - 2 each PO Q6HR PRN #40 tab 09/30/20 [Rx] Aspirin 325 mg PO BID #60 tab 09/30/20 [Rx] Referrals: Disha Pereira, PT [Physical Therapist] - 10/06/20 10:00 am (Please arrive 15-30 minutes early for your Physical Therapy appointment. [place] at the ER desk. Physical Therapy phone number is [phone].) Aubrey Barth MD [Physician] - 10/13/20 9:00 am (Arrive 15 minutes early to register for your appointment.) - Discharge Summary/Plan Comment DC Time >30 min.: No Discharge Summary/Plan Comment: * Anticipate discharge to home with outpatient PT orders. * RX sent to patients pharmacy for pain control; 1 week supply of Percocet. * Encouraged to continue with stool softener while on opioid pain medication. * RX sent to pharmacy for aspirin per patients request; BID for DVT/VTE prophylaxis. * Continue with Nozin spray BID. * Educated on warning signs of SSI and DVT/VTE; patient expressed understanding of return precautions. * Patient to follow up with ortho clinic in 2 weeks; encouraged to call if concerns or questions arise prior to scheduled apt. - General Info Functional Status: Reports: Pain Controlled, Tolerating Diet, Ambulating (with FWW ), Urinating - Review of Systems General: Denies: Fever, Weakness, Fatigue, Malaise, Chills, Night Sweats HEENT: Denies: Visual Changes Pulmonary: Denies: Shortness of Breath Cardiovascular: Denies: Chest Pain Musculoskeletal: Reports: Leg Pain (left ), Joint Pain (left knee ), Joint Swelling (left knee ) Skin: Reports: Bruising Neurological: Reports: No Symptoms Psychiatric: Reports: No Symptoms - Patient Data Vitals - Most Recent: Last Vital Signs Temp 97.1 F 09/30/20 03:00 Pulse 82 09/30/20 03:00 Resp 18 09/30/20 03:00 BP 124/76 09/30/20 03:00 Pulse Ox 98 09/30/20 03:00 Weight - Most Recent: 253 lb 3.99 oz I&O - Last 24 hours: Intake & Output 09/29/20 09/30/20 09/30/20 22:59 06:59 14:59 Intake Total 900 700 Output Total 0 Balance -1150 700 Med Orders - Current: Current Medications Acetaminophen (Acetaminophen 325 Mg Tab) 650 mg PO Q4H PRN PRN Reason: Pain/Fever Amphetamine/Dextroamphetamine (Amphetamine/Dextroamphetamine Salts 10 Mg Tab) 20 mg PO DAILY BERENICE Last Admin: 09/29/20 09:44 Dose: 20 mg Documented by: Aripiprazole (Aripiprazole 10 Mg Tab) 10 mg PO DAILY [facility] Last Admin: 09/29/20 09:44 Dose: 10 mg Documented by: Bandage/Support Products (Nozin Nasal Shuttle Driver) 1 applic NASBOTH BID [facility] Stop: 10/04/20 21:01 Last Admin: 09/29/20 22:03 Dose: 1 applic Documented by: Bupropion HCl (Bupropion 150 Mg Tab.Er) 150 mg PO DAILY [facility] Last Admin: 09/29/20 09:45 Dose: 150 mg Documented by: Bupropion HCl (Bupropion 150 Mg Tab.Er) 300 mg PO BEDTIME [facility] Last Admin: 09/29/20 22:06 Dose: 300 mg Documented by: Buspirone HCl (Buspirone 10 Mg Tab) 30 mg PO BID [facility] Last Admin: 09/29/20 22:04 Dose: 30 mg Documented by: Docusate Sodium (Docusate Sodium 100 Mg Cap) 100 mg PO BID [facility] Last Admin: 09/29/20 22:04 Dose: 100 mg Documented by: Duloxetine HCl (Duloxetine 30 Mg Cap) 120 mg PO DAILY [facility] Last Admin: 09/29/20 09:44 Dose: 120 mg Documented by: Enoxaparin Sodium (Enoxaparin 30 Mg/0.3 Ml Syringe) 30 mg SUBCUT DAILY [facility] Last Admin: 09/29/20 09:45 Dose: 30 mg Documented by: Estradiol (Estradiol 0.5 Mg Tab) 1 mg PO DAILY [facility] Last Admin: 09/29/20 09:44 Dose: 1 mg Documented by: Eszopiclone (Eszopiclone 1 Mg Tab) 0.5 - 2 mg PO BEDTIME PRN PRN Reason: Sleep Last Admin: 09/29/20 22:00 Dose: 1 mg Documented by: Gemfibrozil (Gemfibrozil 600 Mg Tab) 600 mg PO BID [facility] Last Admin: 09/29/20 22:04 Dose: 600 mg Documented by: Sodium Chloride (Normal Saline) 1,000 mls @ 125 mls/hr IV ASDIRECTED [facility] Last Admin: 09/29/20 02:05 Dose: 125 mls/hr Documented by: [place] Carbonate ([place] Carbonate 150 Mg Cap) 150 mg PO BEDTIME [facility] Last Admin: 09/29/20 22:05 Dose: 150 mg Documented by: [place] Carbonate ([place] Carbonate 300 Mg Tab.Er) 300 mg PO BEDTIME [facility] Last Admin: 09/29/20 22:07 Dose: 300 mg Documented by: Lorazepam (Lorazepam 1 Mg Tab) 1 mg PO Q4H PRN PRN Reason: Anxiety Morphine Sulfate (Morphine 2 Mg/Ml Syringe) 1 mg IVPUSH Q1H PRN PRN Reason: Breakthrough Pain Last Admin: 09/28/20 19:58 Dose: 1 mg Documented by: Ondansetron HCl (Ondansetron 4 Mg/2 Ml Sdv) 4 mg IVPUSH Q4H PRN PRN Reason: Nausea/Vomiting Oxycodone/Acetaminophen (Acetaminophen/Oxycodone 325-5 Mg Tab) 1 - 2 tab PO Q4H PRN PRN Reason: Pain Last Admin: 09/30/20 05:11 Dose: 2 tab Documented by: Discontinued Medications Bandage/Support Products (Nozin Nasal Shuttle Driver) 1 applic NASBOTH ONETIME ONE Stop: 09/28/20 08:16 Last Admin: 09/28/20 08:27 Dose: 3 swab Documented by: Fentanyl (Fentanyl 100 Mcg/2 Ml Sdv) Confirm Administered Dose 100 mcg .ROUTE .STK-MED ONE Stop: 09/28/20 08:50 Lactated Ringer's (Ringers, Lactated) 1,000 mls @ 75 mls/hr IV ASDIRECTED [facility] Last Admin: 09/28/20 08:46 Dose: 75 mls/hr Documented by: Cefazolin Sodium/Dextrose 2 gm (/ Premix) 50 mls @ 100 mls/hr IV ONETIME ONE Stop: 09/28/20 09:14 Last Admin: 09/28/20 11:01 Dose: 100 mls/hr Documented by: Tranexamic Acid 1,000 mg/ (Sodium Chloride) 60 mls @ 240 mls/hr IV ONETIME ONE Stop: 09/28/20 09:29 Last Admin: 09/28/20 11:03 Dose: 240 mls/hr Documented by: Tranexamic Acid 1,000 mg/ (Sodium Chloride) 60 mls @ 240 mls/hr IV ONETIME PRN PRN Reason: 2ND DOSE IF REQUESTED BY MD Stop: 09/28/20 12:15 Cefazolin Sodium/Dextrose 1 gm (/ Premix) 50 mls @ 100 mls/hr IV Q8H [facility] Stop: 09/29/20 10:29 Last Admin: 09/29/20 09:45 Dose: 100 mls/hr Documented by: Ketorolac Tromethamine (Ketorolac 30 Mg/Ml Sdv) 30 mg IVPUSH Q8H [facility] Stop: 09/29/20 14:01 Last Admin: 09/29/20 13:54 Dose: 30 mg Documented by: Midazolam HCl (Midazolam 1 Mg/Ml 2 Ml Sdv) Confirm Administered Dose 2 mg .ROUTE .STK-MED ONE Stop: 09/28/20 08:50 Midazolam HCl (Midazolam 1 Mg/Ml 2 Ml Sdv) Confirm Administered Dose 2 mg .ROUTE .STK-MED ONE Stop: 09/28/20 11:38 Non-Formulary Medication (Atorvastatin Calcium [Lipitor]) 40 mg PO DAILY [facility] Povidone Iodine (Povidone-Iodine 10% Soln 118.25 Ml Bottle) Confirm Administered Dose 1 ml .ROUTE .STK-MED ONE Stop: 09/28/20 06:55 Last Admin: 09/28/20 12:02 Dose: 15 ml Documented by: Propofol (Propofol 200 Mg/20 Ml Sdv) Confirm Administered Dose 200 mg .ROUTE .STK-MED ONE Stop: 09/28/20 08:50 Propofol (Propofol 200 Mg/20 Ml Sdv) Confirm Administered Dose 200 mg .ROUTE .STK-MED ONE Stop: 09/28/20 11:53 - Exam Quality Assessment: Reports: DVT Prophylaxis General: Reports: Alert, Oriented, Cooperative, No Acute Distress Extremities: Normal Capillary Refill, Pedal Edema, Joint Swelling (left knee ), Leg Pain (left ), Limited Range of Motion (from postoperative swelling and pain ). No: Jhony's Sign Skin: Reports: Dry, Intact Wound/Incisions: Reports: Healing Well, Dressing Dry and Intact, No Drainage Neurological: Reports: No New Focal Deficit Psy/Mental Status: Reports: Alert, Normal Affect, Normal Mood
[2020-09-30] MEDS: DULoxetine 30 MG Cap PO SCH (09:09)
[2020-09-30] MEDS: Gemfibrozil 600 MG Tab PO SCH (09:09)
[2020-09-30] MEDS: busPIRone 10 MG Tab PO SCH (09:09)
[2020-09-30] MEDS: Nozin Nasal Sanitizer NASBOTH SCH (09:09)
[2020-09-30] MEDS: Enoxaparin 30 MG/0.3 ML Syringe SUBCUT SCH (09:09)
[2020-09-30] MEDS: ARIPiprazole 10 MG Tab PO SCH (09:09)
[2020-09-30] MEDS: Docusate Sodium 100 MG Cap PO SCH (09:09)
[2020-09-30] MEDS: Estradiol 0.5 MG Tab PO SCH (09:10)
[2020-09-30] MEDS: buPROPion 150 MG Tab.ER PO SCH (09:10)
[2020-09-30] MEDS: Amphetamine/Dextroamphetamine Salts 10 MG Tab PO SCH (09:13)
--- NOTE | 2020-10-01 08:06 | OR ---
DATE OF PROCEDURE: 09/28/2020 SURGEON: Aubrey Barth MD PREOPERATIVE DIAGNOSIS: Osteoarthritis, left knee. POSTOPERATIVE DIAGNOSIS: Osteoarthritis, left knee. PROCEDURE: Left total knee arthroplasty using Raquel Persona implants with a size 8 narrow femur, size E tibia, 10 mm polyethylene and a 32 mm patella. PLANT BUYER: RICARDA Gallardo. ANESTHESIA: Spinal with sedation. INDICATIONS: Pavithra is a 44-year-old female with a history of progressive pain in her left knee over the past couple of years. She has failed conservative treatment. She has a history of right total knee done almost 4 years ago and has done well with that. She now presents for left total knee arthroplasty. Risks, benefits, and potential complications of the procedure were discussed. DESCRIPTION OF PROCEDURE: After adequate anesthesia was obtained, the patient was placed supine with a tourniquet about the left leg. Left leg was prepped and draped in a sterile fashion. Leg was exsanguinated and tourniquet inflated to 300 mmHg pressure. A longitudinal incision was made over the anterior aspect of the knee, carried down through the subcutaneous tissues and a medial parapatellar arthrotomy was performed. Mild effusion is present. The patella is everted and the posterior aspect of the patella was resected with an oscillating saw. Moderate degenerative changes were noted in the patellofemoral joint. Knee was flexed and the intramedullary canal of the femur was drilled. Intramedullary guide was placed and the distal femoral cuts were made. Attention is turned to the tibia. The tibial cutting jig is placed, aligned and secured. Proximal tibia was resected with an oscillating saw. Medial and lateral menisci are resected. Attention returned to the femur. This was sized to #8 prosthesis. 8 cutting jig was secured in place and the remaining cuts were made. The femoral trial was positioned and intercondylar notch was cut for a posterior cruciate-sacrificing component. The tibia was sized to an E component. E base plate was pinned in position. Proximal tibia was drilled and punched for the pins. The knee was trialed with a 10 mm insert providing full extension, good balance in flexion and extension. The patella was resurfaced with a 32 mm button which tracked very well. The trial components were removed. The knee is thoroughly irrigated with the pulse lavage. Bone ends were dried and components were cemented in place. Excess cement was removed. The knee was held in full extension with a 10 mm trial insert as the cement cured. Knee was taken through range of motion and found to be very stable and well balanced in flexion and extension with the 10 mm trial. The trial was removed and the final polyethylene was snapped into position. Knee was thoroughly irrigated with pulse lavage. This was followed by a dilute Betadine irrigation which was left in place for 2.5 minutes and then irrigated with pulse lavage. Medial arthrotomy is closed with #2 Ethibond in interrupted fashion. Skin was closed with 2-0 Vicryl and a running 3-0 Monocryl. Steri-Strips were applied. The patient tolerated the procedure very well. Sterile dressing is placed. She was taken from the operating room in a stable condition. Aubrey Barth MD /[id number]
== END 2020-09-30 12:00 | disposition home or self-care (01) | DRG 554 ==
LOC: JP.SDS 07:46 → JP.MS 13:06 → JP.SDS 09-29 08:36 → JP.MS 09-29 08:36
PROVIDERS: ADMIT Specialist; ATTEND Specialist
DX: M17.12 Unilateral primary osteoarthritis, left knee (principal); D62 Acute posthemorrhagic anemia; Z68.41 Body mass index [BMI] 40.0-44.9, adult; F32.9 Major depressive disorder, single episode, unspecified; E66.9 Obesity, unspecified; G89.29 Other chronic pain; Z90.49 Acquired absence of other specified parts of digestive tract; Z90.710 Acquired absence of both cervix and uterus; Z88.8 Allergy status to other drugs, medicaments and biological substances
CPT/HCPCS: 36415; 73560-26-LT; 73560-LT; 85027; 97110-GP; 97161-GP; 97165-GO; A9270-GY; C1713; C1776; J0690; J1650; J1885; J2250; J2270; J2704; J3010; J7030; J7120

== ENCOUNTER 2021-03-31 05:47 | Day surgery (SDC) | payer OTHER ==
[2021-03-31] MEDS ORDERED: Nozin Nasal Sanitizer NASBOTH ONE (06:30)
[2021-03-31] MEDS ORDERED: Bupivacaine 0.5% 30 ML SDV ONE (06:32)
[2021-03-31 06:46] LABS: CORONAVIRUS COVID-19 NAA POSITIVE (NEGATIVE)
[2021-03-31] MEDS ORDERED: Lactated Ringers 1,000 ML IV SCH (07:00)
[2021-03-31] MEDS ORDERED: ceFAZolin 2 GM in Premix Bag 1 BAG IV ONE (07:30)
== END 2021-03-31 07:06 | disposition home or self-care (01) ==
LOC: JP.SDS 05:47
PROVIDERS: ATTEND Specialist
DX: M17.12 Unilateral primary osteoarthritis, left knee (principal); Z53.09 Procedure and treatment not carried out because of other contraindication; U07.1 COVID-19; M65.162 Other infective (teno)synovitis, left knee; Z88.1 Allergy status to other antibiotic agents; Z88.8 Allergy status to other drugs, medicaments and biological substances; Z88.5 Allergy status to narcotic agent
CPT/HCPCS: 0241U; 36415; 80048; 85027; A9270; J7120; J3490

== ENCOUNTER 2021-04-28 06:45 | Day surgery (SDC) | payer OTHER ==
[2021-04-28] MEDS ORDERED: Bupivacaine 0.5% 30 ML SDV ONE (06:49)
[2021-04-28] MEDS ORDERED: Propofol 200 MG/20 ML SDV ONE ×2 (07:29→09:19)
[2021-04-28] MEDS ORDERED: Neostigmine Methylsulfate 1 MG/ML 5 ML Syringe ONE (07:29)
[2021-04-28] MEDS ORDERED: Rocuronium 50 MG/5 ML Vial ONE (07:29)
[2021-04-28] MEDS ORDERED: Ondansetron 4 MG/2 ML SDV ONE (07:29)
[2021-04-28] MEDS ORDERED: Glycopyrrolate 0.2 MG/ML 5 ML MDV ONE (07:29)
[2021-04-28] MEDS ORDERED: Succinylcholine 200 MG/10 ML MDV ONE (07:29)
[2021-04-28] MEDS ORDERED: Dexamethasone 4 MG/ML SDV ONE (07:29)
[2021-04-28] MEDS ORDERED: Nozin Nasal Sanitizer NASBOTH ONE (07:30)
[2021-04-28] MEDS ORDERED: Lactated Ringers 1,000 ML IV SCH (07:30)
[2021-04-28] MEDS ORDERED: fentaNYL 250 MCG/5 ML SDV ONE (07:32)
[2021-04-28] MEDS ORDERED: ceFAZolin 2 GM in Premix Bag 1 BAG IV ONE (08:15)
[2021-04-28] MEDS ORDERED: fentaNYL 100 MCG/2 ML SDV ONE (08:49)
[2021-04-28] MEDS ORDERED: Ketorolac 30 MG/ML SDV ONE (09:07)
[2021-04-28] MEDS ORDERED: traMADol 50 MG Tab PO ONE (10:45)
== END 2021-04-28 11:08 | disposition home or self-care (01) ==
LOC: JP.SDS 06:45
PROVIDERS: ATTEND Specialist
DX: M65.862 Other synovitis and tenosynovitis, left lower leg (principal); M25.862 Other specified joint disorders, left knee; F32.A Depression, unspecified; E66.9 Obesity, unspecified; Z88.5 Allergy status to narcotic agent; Z68.41 Body mass index [BMI] 40.0-44.9, adult
CPT/HCPCS: 36415; 80048; 85027; A9270-GY; J0330; J0690; J1100; J1885; J2405; J2704; J2710; J3010; J3490; J7120

== ENCOUNTER 2021-08-13 16:41 | Emergency (ER) | payer OTHER | END 2021-08-13 17:56 | disposition home or self-care (01) | LOC: JP.ED 16:41 | DX: Z76.89 Persons encountering health services in other specified circumstances (principal); E78.00 Pure hypercholesterolemia, unspecified; E66.9 Obesity, unspecified; Z68.35 Body mass index [BMI] 35.0-35.9, adult; Z79.899 Other long term (current) drug therapy | CPT/HCPCS: 99281; 99283 ==

== ENCOUNTER 2022-07-26 17:54 | Emergency (ER) | payer OTHER, MEDICARE ==
[2022-07-26] MEDS ORDERED: Sodium Chloride 0.9% 10 ML Syringe FLUSH PRN (19:21)
[2022-07-26 19:51] LABS: BASOPHILS ABSOLUTE AUTO 0.04 K/uL (0.00-0.10); BASOPHILS PERCENT AUTO 0.4 % (0.1-1.3); EOSINOPHILS ABSOLUTE AUTO 0.39 K/uL (0.00-0.40); EOSINOPHILS PERCENT AUTO 3.4 % (0.0-5.4); HEMATOCRIT 38.8 % (34.3-46.0); HEMOGLOBIN 13.7 g/dL (11.2-15.5); IMMATURE GRAN ABSOLUTE AUTO 0.04 K/uL (0.00-0.23); IMMATURE GRAN PERCENT AUTO 0.4 % (0.0-0.7); LYMPHOCYTES ABSOLUTE AUTO 3.92 K/uL (0.8-3.3); LYMPHOCYTES PERCENT AUTO 34.3 % (11.4-47.7); MEAN CORPUSCULAR HEMOGLOBIN 29.7 pg (31.6-35.5); MEAN CORPUSCULAR HGB CONC 35.3 g/dL (31.6-35.5); MEAN CORPUSCULAR VOLUME 84.2 fL (81.4-99.0); MONOCYTES ABSOLUTE AUTO 1.07 K/uL (0.20-0.90); MONOCYTES PERCENT AUTO 9.4 % (3.3-12.6); NEUTROPHILS ABSOLUTE AUTO 5.96 K/uL (1.0-7.6); NEUTROPHILS PERCENT AUTO 52.1 % (40.0-78.1); PLATELET COUNT,PLT 344 K/uL (130-375); RED BLOOD CELL COUNT 4.61 M/uL (3.77-5.24); WHITE BLOOD CELL COUNT,WBC 11.4 K/uL (3.2-11.0)
[2022-07-26 20:02] LABS: INR 1.1; PROTHROMBIN TIME 10.8 sec (9.2-10.6); PTT,PARTIAL THROMBOPLSTIN TIME 26.6 sec (21.8-27.3)
[2022-07-26 20:03] LABS: A/G RATIO 0.9 (1.2-2.2); ALANINE AMINOTRANSFERASE,ALT 46 U/L (12-78); ALBUMIN 3.5 g/dL (3.4-5.0); ALKALINE PHOSPHATASE 110 U/L (46-116); ANION GAP 8.7 mmol/L (5.0-14.0); ASPARTATE AMNIOTRANSFERASE,AST 31 U/L (15-37); BILIRUBIN TOTAL 0.4 mg/dL (0.2-1.0); BLOOD UREA NITROGEN,BUN 19 mg/dL (7-18); CALCIUM 8.8 mg/dL (8.5-10.1); CARBON DIOXIDE,CO2 26 mmol/L (21-32); CHLORIDE,CL 105 mmol/L (100-108); CREATININE 0.9 mg/dL (0.6-1.0); EST CRCL DRUG DOSING (CG) 66.73 mL/min; ESTIMATED GFR 79 mL/min (>60); GLUCOSE RANDOM 107 mg/dL (74-106); POTASSIUM,K 3.9 mmol/L (3.6-5.2); PROTEIN TOTAL,TP 7.5 g/dL (6.4-8.2); SODIUM,NA 140 mmol/L (140-148)
== END 2022-07-26 21:22 | disposition home or self-care (01) ==
LOC: JP.ED 17:54
DX: K60.2 Anal fissure, unspecified (principal); K62.5 Hemorrhage of anus and rectum; E78.00 Pure hypercholesterolemia, unspecified; E66.9 Obesity, unspecified; F17.210 Nicotine dependence, cigarettes, uncomplicated; Z68.42 Body mass index [BMI] 45.0-49.9, adult; Z88.0 Allergy status to penicillin; Z88.5 Allergy status to narcotic agent; Z79.899 Other long term (current) drug therapy
CPT/HCPCS: 36415; 80053; 82272; 85025; 85610; 85730; 99283; J3490

== ENCOUNTER 2022-10-05 06:28 | Day surgery (SDC) | payer OTHER, MEDICARE ==
[~2022-10-05 06:28] MED LIST changes: +Acetaminophen 500 MG Tab PO ONE; +Lactated Ringers 1,000 ML IV SCH; -Povidone-Iodine 10% Soln 118.25 ML Bottle ONE
[2022-10-05] MEDS ORDERED: Bupivacaine 0.5% 50 ML MDV ONE (06:44)
[2022-10-05] MEDS ORDERED: Lidocaine 1% with EPINEPHrine 1:100,000 50 ML MDV ONE (06:44)
[2022-10-05] MEDS ORDERED: Acetaminophen 500 MG Tab PO ONE (07:00)
[2022-10-05] MEDS ORDERED: Lactated Ringers 1,000 ML IV SCH (07:30)
[2022-10-05] MEDS ORDERED: fentaNYL 100 MCG/2 ML SDV ONE (07:35)
[2022-10-05] MEDS ORDERED: Propofol 200 MG/20 ML SDV ONE (07:35)
[2022-10-05] MEDS ORDERED: Midazolam 1 MG/ML 2 ML SDV ONE (07:35)
[2022-10-05] MEDS ORDERED: Clindamycin Phosphate in D5W 900 MG in Premix Bag 1 BAG IV ONE ×2 (08:00)
== END 2022-10-05 09:36 | disposition home or self-care (01) ==
LOC: JP.SDS 06:28
PROVIDERS: ATTEND Student in an Organized Health Care Education/Training Program
DX: T85.618A Breakdown (mechanical) of other specified internal prosthetic devices, implants and grafts, initial encounter (principal); F33.2 Major depressive disorder, recurrent severe without psychotic features; F17.210 Nicotine dependence, cigarettes, uncomplicated; F43.10 Post-traumatic stress disorder, unspecified; E66.01 Morbid (severe) obesity due to excess calories; Z68.42 Body mass index [BMI] 45.0-49.9, adult; Z98.890 Other specified postprocedural states; Z79.899 Other long term (current) drug therapy; Z88.0 Allergy status to penicillin; Z88.5 Allergy status to narcotic agent
CPT/HCPCS: 36590; A9270; J2250; J2704; J3010; J3490; J7120

== ENCOUNTER 2023-05-22 13:17 | Emergency (ER) | payer MEDICARE, OTHER ==
[2023-05-22] MEDS ORDERED: HYDROmorphone 1 MG/ML Syringe IVPUSH ONE (14:59)
[2023-05-22] MEDS ORDERED: Naloxone 0.4 MG/ML SDV IVPUSH PRN ×2 (14:59→15:19)
[2023-05-22 15:10] LABS: BASOPHILS ABSOLUTE AUTO 0.02 K/uL (0.00-0.10); BASOPHILS PERCENT AUTO 0.2 % (0.1-1.3); EOSINOPHILS ABSOLUTE AUTO 0.39 K/uL (0.00-0.40); HEMATOCRIT 41.5 % (34.3-46.0); HEMOGLOBIN 14.6 g/dL (11.2-15.5); IMMATURE GRAN ABSOLUTE AUTO 0.03 K/uL (0.00-0.23); IMMATURE GRAN PERCENT AUTO 0.3 % (0.0-0.7); LYMPHOCYTES ABSOLUTE AUTO 3.22 K/uL (0.8-3.3); MEAN CORPUSCULAR HEMOGLOBIN 30.4 pg (31.6-35.5); MEAN CORPUSCULAR HGB CONC 35.2 g/dL (31.6-35.5); MEAN CORPUSCULAR VOLUME 86.5 fL (81.4-99.0); MONOCYTES ABSOLUTE AUTO 0.67 K/uL (0.20-0.90); MONOCYTES PERCENT AUTO 6.9 % (3.3-12.6); NEUTROPHILS ABSOLUTE AUTO 5.42 K/uL (1.0-7.6); NEUTROPHILS PERCENT AUTO 55.6 % (40.0-78.1); PLATELET COUNT,PLT 360 K/uL (130-375); WHITE BLOOD CELL COUNT,WBC 9.8 K/uL (3.2-11.0)
[2023-05-22] MEDS: Sodium Chloride 0.9% 1,000 ML IV ONE (15:17)
[2023-05-22] MEDS: HYDROmorphone 1 MG/ML Syringe IVPUSH ONE ×2 (15:25→16:07)
[2023-05-22 15:40] LABS: ALANINE AMINOTRANSFERASE,ALT 61 U/L (12-78); ALBUMIN 4.3 g/dL (3.4-5.0); ALKALINE PHOSPHATASE 123 U/L (46-116); ANION GAP 9.3 mmol/L (5.0-14.0); ASPARTATE AMNIOTRANSFERASE,AST 37 U/L (15-37); BILIRUBIN TOTAL 0.3 mg/dL (0.2-1.0); BLOOD UREA NITROGEN,BUN 14 mg/dL (7-18); CALCIUM 10.3 mg/dL (8.5-10.1); CARBON DIOXIDE,CO2 30 mmol/L (21-32); CHLORIDE,CL 102 mmol/L (100-108); CREATININE 0.9 mg/dL (0.6-1.0); EST CRCL DRUG DOSING (CG) 66.01 mL/min; ESTIMATED GFR 79 mL/min (>60); GLUCOSE RANDOM 104 mg/dL (74-106); POTASSIUM,K 4.1 mmol/L (3.6-5.2); PROTEIN TOTAL,TP 8.6 g/dL (6.4-8.2); SODIUM,NA 141 mmol/L (140-148); TSH ULTRASENSITIVE 1.079 uIU/mL (0.358-3.740)
[2023-05-22] MEDS: Sodium Chloride 0.9% 50 ML IV SCH (15:49)
[2023-05-22] MEDS: Iopamidol 612 MG/ML 100 ML Bottle IV SCH (15:49)
== END 2023-05-22 18:15 | disposition home or self-care (01) ==
LOC: JP.ED 13:17
DX: G44.209 Tension-type headache, unspecified, not intractable (principal); E78.00 Pure hypercholesterolemia, unspecified; E66.9 Obesity, unspecified; F17.210 Nicotine dependence, cigarettes, uncomplicated; Z68.41 Body mass index [BMI] 40.0-44.9, adult; Z88.0 Allergy status to penicillin; Z88.5 Allergy status to narcotic agent; Z88.8 Allergy status to other drugs, medicaments and biological substances; Z79.899 Other long term (current) drug therapy; Z86.19 Personal history of other infectious and parasitic diseases
CPT/HCPCS: 36415; 70470; 80053; 84443; 85025; 96361; 96374; 96376; 99284; J1170; J3490; J7030; Q9967